=== PATIENT | female | born 1965 | race Caucasian/White ===

== ENCOUNTER 2022-05-24 13:05 | Outpatient (CLI) | payer OTHER | END 2022-05-24 13:06 | disposition home or self-care (01) | LOC: MRI 13:05 → SCSMRI 13:06 | PROVIDERS: ATTEND Family Medicine | DX: M23.91 Unspecified internal derangement of right knee (principal); S89.91XD Unspecified injury of right lower leg, subsequent encounter; M25.461 Effusion, right knee ==

== ENCOUNTER 2022-11-12 12:39 | Outpatient (CLI) | payer BC, OTHER ==
[2022-11-12 13:55] LABS: #Eosinphils 0.2 10x3/uL (0.0-0.5); #Monocytes 0.7 10x3/uL (0.0-1.1); #Neutrophils 2.9 10x3/uL (1.5-8.4); %Basophils 0.7 % (0.0-2.0); %Eosinophils 3.4 % (0.0-6.0); %Lymphocytes 36.5 % (18.0-47.0); %Monocytes 11.7 % (0.0-10.0); %Neutrophils 47.2 % (40.0-75.0); Hemoglobin 14.2 g/dL (12.0-15.5); Mean Corpuscular HGB CONC 33.8 g/dL (32.0-36.0); Mean Corpuscular Hemoglobin 32.9 pg (27.0-33.0); Mean Corpuscular Volume 97.4 fl (81.6-98.3); Mean Platelet Volume 10.6 fl (7.4-10.4); Platelet Count 223 10x3/uL (150-450); RBC Distribution Width 12.6 % (11.5-14.5); Red Blood Cell (RBC) Count 4.31 10x6/uL (3.90-5.03); White Blood Cell (WBC) Count 6.1 10x3/uL (3.5-10.5)
== END 2022-11-12 12:40 | disposition home or self-care (01) ==
LOC: LABBT 12:39
PROVIDERS: ATTEND Orthopaedic Surgery
DX: Z01.818 Encounter for other preprocedural examination (principal); S83.231A Complex tear of medial meniscus, current injury, right knee, initial encounter
CPT/HCPCS: 85025; 93005; 93010

== ENCOUNTER 2022-11-15 06:54 | Day surgery (SDC) | payer OTHER ==
[2022-11-12 13:19] VITALS: BMI 28.3
[2022-11-15] MEDS ORDERED: Bupivacaine PF 0.5% 30 ML VIAL ONE (08:15)
[2022-11-15] MEDS ORDERED: Lidocaine 2% PF 5 ML VIAL ONE (08:15)
[2022-11-15] MEDS ORDERED: EPINEPHrine 1 MG/ML AMP ONE ×2 (08:15→08:53)
[2022-11-15] MEDS ORDERED: PROPOFOL 20 ML ONE (08:15)
[2022-11-15] MEDS ORDERED: Lidocaine 1% (PF) 30 ML VIAL ONE (08:53)
[2022-11-15] MEDS ORDERED: CEFAZOLIN 2 GM VIAL ONE (08:58)
[2022-11-15] MEDS ORDERED: Sodium Chloride 0.9% 100 ML ONE (08:58)
[2022-11-15] MEDS ORDERED: PHENYLEPHRINE-NS 100 MCG/ML 10 ML SYRINGE ONE (10:00)
[2022-11-15] MEDS ORDERED: Ondansetron PF 4 MG/2 ML Vial ONE (10:00)
[2022-11-15] MEDS ORDERED: Dexamethasone 20 MG/5 ML VIAL ONE (10:00)
[2022-11-15] MEDS ORDERED: ePHEDrine Sulfate 50 MG/10 ML VIAL ONE (10:00)
[2022-11-15] MEDS ORDERED: Lidocaine 1% PF 5 ML VIAL ONE (10:00)
[2022-11-15] MEDS ORDERED: PROPOFOL 200 MG/20 ML VIAL ONE (10:00)
[2022-11-15] MEDS ORDERED: Glycopyrrolate 0.2 MG/ML 5 ML SYRINGE ONE (10:00)
[2022-11-15] MEDS ORDERED: fentaNYL 50 mcg/mL 1 mL Vial ONE ×2 (10:07→10:09)
== END 2022-11-15 13:40 | disposition home or self-care (01) ==
LOC: SDC 06:54
PROVIDERS: ATTEND Orthopaedic Surgery
PROC: 0SBC4ZZ Excision of Right Knee Joint, Percutaneous Endoscopic Approach (ICD-10-PCS; principal; 2022-11-15)
DX: S83.231D Complex tear of medial meniscus, current injury, right knee, subsequent encounter (principal); M17.11 Unilateral primary osteoarthritis, right knee; I10 Essential (primary) hypertension; E87.5 Hyperkalemia; F41.9 Anxiety disorder, unspecified; Z87.891 Personal history of nicotine dependence; Z79.899 Other long term (current) drug therapy; X58.XXXD Exposure to other specified factors, subsequent encounter
CPT/HCPCS: J0171; J1100; J2001; J2405; J2704; J3010; J3490; S0020

== ENCOUNTER 2025-02-02 08:40 | Outpatient (CLI) | payer OTHER ==
[2025-02-02 09:37] LABS: #Basophils Less than 0.03 10x3/uL (0.0-0.2); #Eosinophils 0.04 10x3/uL (0.0-0.7); #Monocytes 1.03 10x3/uL (0.11-0.59); #Neutrophils 6.43 10x3/uL (1.40-6.50); %Basophils 0.2 % (0.0-1.0); %Eosinophils 0.4 % (0.0-10.0); %Lymphocytes 23.2 % (21.0-51.0); %Monocytes 10.5 % (0.0-10.0); %Neutrophils 65.3 % (42.0-75.0); Hematocrit 42.7 % (36.0-47.0); Hemoglobin 13.9 g/dL (12.0-16.0); Mean Corpuscular Hemoglobin 30.9 pg (27.0-31.0); Mean Corpuscular Volume 94.9 fL (78.0-98.0); Platelet Count 221 10x3/uL (130-400); Red Blood Cell (RBC) Count 4.50 mill/uL (4.20-5.40); White Blood Cell (WBC) Count 9.84 10x3/uL (4.8-10.8)
[2025-02-02 09:52] LABS: INR-International Normal Ratio 0.9; Prothrombin Time 12.4 sec (12.0-14.7)
[2025-02-02 10:00] LABS: ALT (SGPT) 32 U/L (Less than 34); AST (SGOT) 36 U/L (11-34); Albumin 4.0 g/dL (3.1-4.5); Alkaline Phosphatase 49 U/L (40-110); Anion Gap 12 mmol/L (10-20); BUN (Urea Nitrogen) 16 mg/dL (9.8-20.1); Bilirubin, Total 0.3 mg/dL (0.3-1.2); Calc. Creatinine Clearance 0 mL/min (70-130); Calcium 9.7 mg/dL (7.8-10.44); Carbon Dioxide 27 mmol/L (22-29); Chloride 104 mmol/L (98-107); Globulin 3.3 g/dL (2.4-3.5); Glucose 116 mg/dL (70-105); Potassium 4.4 mmol/L (3.5-5.1); Sodium 139 mmol/L (136-145)
== END 2025-02-02 08:41 | disposition home or self-care (01) ==
LOC: LABBT 08:40
PROVIDERS: ATTEND Orthopaedic Surgery
DX: Z01.818 Encounter for other preprocedural examination (principal); M17.11 Unilateral primary osteoarthritis, right knee
CPT/HCPCS: 80053; 85025; 85610; 87081; 93005; 93010

== ENCOUNTER 2025-02-05 08:36 | Outpatient (CLI) | payer OTHER | END 2025-02-05 08:37 | disposition home or self-care (01) | LOC: BICCT 08:36 | PROVIDERS: ATTEND Orthopaedic Surgery | DX: Z01.818 Encounter for other preprocedural examination (principal); M17.11 Unilateral primary osteoarthritis, right knee ==

== ENCOUNTER 2025-02-09 07:38 | Observation (INO) | payer OTHER ==
[2025-02-09] MEDS ORDERED: Lidocaine 1% (PF) 30 ML VIAL ONE (09:05)
[2025-02-09] MEDS ORDERED: Ropivacaine 0.5% HCl/PF (150 MG/30 ML VIAL) ONE (09:05)
[2025-02-09] MEDS ORDERED: CEFAZOLIN 2 GM VIAL ONE (09:26)
[2025-02-09] MEDS ORDERED: Tranexamic Acid 1,000 MG/10 ML VIAL ONE (09:26)
[2025-02-09] MEDS ORDERED: Famotidine/PF 20 mg/2ml Vial ONE (09:59)
[2025-02-09] MEDS ORDERED: Acetaminophen 500 MG TAB ONE (09:59)
[2025-02-09] MEDS ORDERED: Vancomycin 1 GM/200 ML (FROZEN) BAG ONE (10:00)
[2025-02-09] MEDS ORDERED: Ondansetron PF 4 MG/2 ML Vial ONE (10:15)
[2025-02-09] MEDS ORDERED: Lidocaine 1% PF 5 ML VIAL ONE (10:15)
[2025-02-09] MEDS ORDERED: Ropivacaine 0.2% 550 ML 550 ML NERVE BLCK SCH (10:30)
[2025-02-09] MEDS ORDERED: Ondansetron PF 4 MG/2 ML Vial IVP PRN ×2 (10:30→13:17)
[2025-02-09] MEDS ORDERED: HYDROcodone/Acetaminophen 5/325 mg Tablet PO PRN (10:30)
[2025-02-09] MEDS ORDERED: Bupivacaine 0.25% HCL 30 ML VIAL ONE (10:58)
[2025-02-09] MEDS ORDERED: PHENYLEPHRINE-NS 100 MCG/ML 10 ML SYRINGE ONE (11:28)
[2025-02-09] MEDS ORDERED: PROPOFOL 200 MG/20 ML VIAL ONE (11:28)
[2025-02-09] MEDS ORDERED: Glycopyrrolate 0.2 MG/ML 5 ML SYRINGE ONE (11:28)
[2025-02-09] MEDS ORDERED: diphenhydrAMINE 25 MG CAP PO PRN (13:17)
[2025-02-09] MEDS ORDERED: Acetaminophen 325 MG TAB PO PRN (13:17)
[2025-02-09] MEDS ORDERED: fentaNYL PF 100 MCG/2 ML SYRINGE ONE (13:43)
[2025-02-09] MEDS ORDERED: HYDROmorphone 0.5 MG/0.5 ML SYRINGE ONE (15:05)
[2025-02-09] MEDS: Ketorolac Tromethamine 30 MG (1 mL) VIAL IVP SCH (18:06)
[2025-02-09 18:09] VITALS: BMI 29.5
[2025-02-09] MEDS: HYDROcodone/Acetaminophen 5/325 mg Tablet PO PRN (18:28)
[2025-02-09] MEDS: Rosuvastatin 20 MG TAB PO SCH (21:58)
[2025-02-09] MEDS: Carvedilol 6.25 MG TAB PO SCH (21:58)
[2025-02-09] MEDS: Aspirin 81 mg Enteric Coated Tablet PO SCH (21:58)
[2025-02-09] MEDS: Ferrous Gluconate 324 MG TAB PO SCH (21:59)
[2025-02-09] MEDS: Senokot S 8.6-50 MG TAB PO SCH (21:59)
[2025-02-10 05:26] LABS: Hematocrit 32.7 % (36.0-47.0); Hemoglobin 10.5 g/dL (12.0-16.0); Mean Corpuscular Hemoglobin 30.8 pg (27.0-31.0); Mean Corpuscular Volume 95.9 fL (78.0-98.0); Platelet Count 238 10x3/uL (130-400); Red Blood Cell (RBC) Count 3.41 mill/uL (4.20-5.40); White Blood Cell (WBC) Count 7.42 10x3/uL (4.8-10.8)
[2025-02-10] MEDS: Citalopram 20 MG TAB PO SCH (08:43)
[2025-02-10] MEDS: Multivitamin W/ Minerals 1 TAB PO SCH (08:43)
[2025-02-10] MEDS: Losartan 25 MG TAB PO SCH (08:44)
[2025-02-10] MEDS: Pantoprazole 40 MG DR.TAB PO SCH (08:46)
[2025-02-10] MEDS ORDERED: COLLAGEN HYDR PO SCH (09:00)
[2025-02-10] MEDS ORDERED: ASCORBIC ACID PO SCH (09:00)
[2025-02-10 11:55] VITALS: BP 119/76; TEMP 98.3
[2025-02-10] MEDS ORDERED: FLU (Fluarix Triv) 25-26 (6MOS UP)/PF 45 MCG/0.5 ML Syringe IM ONE (23:59)
== END 2025-02-10 11:48 | disposition home or self-care (01) ==
LOC: SDC 07:38 → SURG B 13:17 → SDC 19:42
PROVIDERS: ADMIT Orthopaedic Surgery; ATTEND Orthopaedic Surgery
PROC: 0SRC0JZ Replacement of Right Knee Joint with Synthetic Substitute, Open Approach (ICD-10-PCS; principal; 2025-02-09)
DX: M17.11 Unilateral primary osteoarthritis, right knee (principal); M23.203 Derangement of unspecified medial meniscus due to old tear or injury, right knee; I10 Essential (primary) hypertension; E78.5 Hyperlipidemia, unspecified; F41.9 Anxiety disorder, unspecified; Z79.899 Other long term (current) drug therapy
CPT/HCPCS: 0055T; 27447; 64448; 36415; 85027; 96374; 96375; 96376; A4306; C1713; C1776; C1889; G0378; J0169; J0665; J1100; J1171; J1308; J1885; J2003; J2250; J2405; J2704; J2795; J3010; J3373